=== PATIENT | male | born 1990 | race African-American/Black ===

== ENCOUNTER 2016-07-10 10:31 | Emergency (ER) | payer MEDICAID ==
[~2016-07-10] VITALS: Ht 195.6 cm; Wt 81.6 kg
[2016-07-10] MEDS ORDERED: ONDANSETRON ODT 4 MG TAB PO ONE (12:15)
[2016-07-10] MEDS ORDERED: KETOROLAC TROMETH 60MG/2ML VIAL IM ONE (12:15)
[2016-07-10 12:49] VITALS: BP 147/69
== END 2016-07-10 13:09 | disposition home or self-care (01) ==
LOC: ER 10:31
DX: G43.909 Migraine, unspecified, not intractable, without status migrainosus (principal)
CPT/HCPCS: 96372 ×2; 99283; J1885 ×2; Q0162 ×2

== ENCOUNTER 2021-05-10 10:46 | Emergency (ER) | payer MEDICAID ==
[~2021-05-10] VITALS: Ht 198.1 cm; Wt 89.8 kg
[2021-05-10 11:00] VITALS: BP 119/85
[2021-05-10 11:33] LABS: Basophils # (auto) 0.1 10 ^3/uL (0-0.2); Basophils % (auto) 1.3 % (0.0-2.0); Eosinophils # (auto) 0.2 10 ^3/uL (0-0.8); Eosinophils % (auto) 2.2 % (0.0-7.0); Hematocrit 37.1 % (41.0-53.0); Hemoglobin 12.3 g/dL (13.5-17.5); Lymphocytes # (auto) 0.9 10 ^3/uL (0.4-5.4); Lymphocytes % (auto) 10.1 % (10.0-50.0); Mean Corpuscular Hemoglobin 30.6 pg (28.0-32.0); Mean Corpuscular Hgb Conc. 33.1 g/dL (32.0-36.0); Mean Corpuscular Volume 92.6 fL (80.0-100.0); Monocytes # (auto) 0.7 10 ^3/uL (0-1.3); Neutrophils % (auto) 78.4 % (37.0-80.0); Red Cell Distribution Width 14.1 % (11.8-14.3); White Blood Cell 8.9 10^3/uL (4.4-10.8)
[2021-05-10 12:00] LABS: Albumin 3.1 g/dL (3.4-5.0); Anion Gap 4 (5-15); Blood Urea Nitrogen 11 mg/dL (7-18); Calcium 8.8 mg/dL (8.5-10.1); Carbon Dioxide 29 mmol/L (21-32); Chloride 105 mmol/L (98-107); Glucose 121 mg/dL (74-106); Potassium 3.9 mmol/L (3.5-5.1); Sodium 138 mmol/L (136-145)
[2021-05-10 12:02] LABS: Alanine Aminotransferase 22 U/L (16-61); Aspartate Aminotransferase 29 U/L (15-37); BUN/Creatinine Ratio 9.4; Blood Alcohol < 3.0 mg/dL (0-5); GFR African American 94 mL/min; GFR Non-African American 77 mL/min
[2021-05-10 12:05] LABS: Alkaline Phosphatase 75 U/L (45-117); Bilirubin, Total 0.6 mg/dL (0.2-1.0); Total Protein 7.1 g/dL (6.4-8.2)
== END 2021-05-10 17:41 | disposition home or self-care (01) ==
LOC: ER 10:46 → EDBD 10:46 → ER 17:41
DX: T40.2X1A Poisoning by other opioids, accidental (unintentional), initial encounter (principal); Y92.89 Other specified places as the place of occurrence of the external cause
CPT/HCPCS: 36415; 36600; 71045; 80053; 80320; 82805; 85025; 93005